=== PATIENT | female | born 1985 ===

== ENCOUNTER 2023-07-06 03:58 | Day surgery (SDC) | payer BC ==
[2023-07-03 09:29] VITALS: BMI 22.9
[2023-07-06] MEDS ORDERED: MIDAZOLAM HCL 2 MG/2 ML SINGLE DOSE VIAL ONE (13:40)
[2023-07-06] MEDS ORDERED: PROPOFOL 20 ML ONE (13:41)
[2023-07-06] MEDS ORDERED: ONDANSETRON 4 MG/2 ML VIAL IVPUSH PRN (13:55)
[2023-07-06] MEDS ORDERED: oxyCODONE HCL 5 MG TABLET PO PRN (13:55)
[2023-07-06] MEDS ORDERED: ACETAMINOPHEN 325 MG TABLET (FP) PO PRN (13:55)
[2023-07-06] MEDS ORDERED: LACTATED RINGERS SOLUTION 1,000 ML IV SCH (14:00)
[2023-07-06] MEDS ORDERED: ceFAZolin SODIUM 1 GM VIAL IVPB ONE (14:15)
[2023-07-06] MEDS ORDERED: ONDANSETRON 4 MG/2 ML VIAL ONE (14:28)
[2023-07-06] MEDS ORDERED: DEXAMETHASONE SOD PHOSPHATE 4 MG/1 ML VIAL ONE (14:28)
[2023-07-06] MEDS ORDERED: KETOROLAC TROMETHAMINE 30 MG/1 ML VIAL ONE (14:30)
[2023-07-06 16:01] VITALS: RESP 18; TEMP 98
[2023-07-06 16:52] VITALS: BP 129/77; PULSE 76
== END 2023-07-06 17:05 | disposition home or self-care (01) ==
LOC: JASU-SURG 03:58
PROVIDERS: ATTEND Obstetrics & Gynecology
PROC: 0UB98ZZ Excision of Uterus, Via Natural or Artificial Opening Endoscopic (ICD-10-PCS; principal; 2023-07-06 14:45)
DX: D25.0 Submucous leiomyoma of uterus (principal); N84.0 Polyp of corpus uteri
CPT/HCPCS: 81025; 88305-TC; 94760